=== PATIENT | female | born 1995 ===

== ENCOUNTER 2024-07-17 17:34 | Emergency (ER) | payer MEDICAID, SELFPAY ==
[2024-07-17 17:49] VITALS: BP 100/68; PULSE 80; RESP 18; TEMP 36; O2SAT 99; BMI 25.8
--- NOTE | 2024-07-17 18:27 | ED_ITS ---
HPI - General Adult General Date Seen: 07/17/24 Chief complaint: Vaginal Bleeding Stated complaint: 7 weeks and bleeding Time Seen by Provider: 07/17/24 17:58 History of Present Illness HPI narrative: 29-year-old generally healthy female presenting to the ER today with her family (her and her 3-year-old daughter) for evaluation of pelvic cramping and vaginal bleeding. She is about 7 weeks with her 2nd . LMP was on 05/29/2024. She has been doing well with her so far. She recalls that with her 1st she did have an episode of bleeding during the 1st trimester but ultimately her daughter was healthy and born at term. This afternoon at about 3:00 p.m. she started having some suprapubic and bilateral lower quadrant cramping. Subsequently she went to the bathroom and had some vaginal bleeding with a small amount of blood and clots in the toilet and a little bit of blood and clots on the toilet paper. She estimates less than a tbsp blood loss. Since then she has had recurrence of cramping but no further bleeding. With concern for the bleeding and cramping and possible miscarriage she came here to the ER today. She does not know her blood type but does not recall receiving RhoGAM during her 1st . Her previous delivery occurred at [facility], in [place]. She plans to have her obstetric care here in [place] with her 2nd . She has her 1st visit and ultrasound scheduled for 1 week from now on 07/24/2024. She is not on any other medications. Related Data Home Medications ?Medication ?Instructions ?Recorded ?Confirmed No Known Home Medications 07/17/24 07/17/24 Allergies Allergy/AdvReac Type Severity Reaction Status Date / Time No Known Drug Allergies Allergy Verified 07/17/24 17:58 Exam Narrative: Exam Narrative: Constitutional: Appears well-developed and well-nourished. Alert. Conversant. Non toxic. HENT: Head: Atraumatic. Nose: Nose normal. Mouth/Throat: Oral mucosa is clear and moist. no trismus. Eyes: Conjunctivae normal. EOM normal. Pupils equal, round, and reactive to light. No scleral icterus. Neck: Normal range of motion. Neck supple. No tracheal deviation present. Cardiovascular: Normal rate, regular rhythm. No gallop. No friction rub. No murmur heard. Symmetric radial artery pulses Pulmonary/Chest: Effort normal. No stridor. No respiratory distress. No wheezes. No rales. No rhonchi . No tenderness. Abdominal: Soft. Bowel sounds normal. No distension. No mass. I do not appreciate any uterine enlargement. Suprapubic tenderness. No rebound. No guarding. Musculoskeletal: RUE: Normal range of motion. No tenderness. No deformity LUE: Normal range of motion. No tenderness. No deformity RLE: Normal range of motion. No edema. No tenderness. No deformity LLE: Normal range of motion. No edema. No tenderness. No deformity Neurological: Alert and oriented to person, place, and time. Normal strength. CN II-VII intact. No sensory deficit. GCS eye subscore is 4. GCS verbal subscore is 5. GCS motor subscore is 6. Normal coordination Skin: Skin is warm and dry. No rash noted. No pallor. Normal capillary refill. Psychiatric: Normal mood. Normal affect. Const: Vital Signs, click to edit/add: Vital Signs - 24 hr 07/17/24 17:49 07/17/24 19:08 Temperature 96.8 F L 97.0 F L Pulse Rate [Left P ulse Oximeter] 80 66 Respiratory Rate 18 18 Blood Pressure [Ri ght Upper Arm] 100/68 107/69 Pulse Oximetry 99 99 Oxygen Delivery Me thod Room Air Room Air Course Course ED Course: Recheck-doing well. No recurrent bleeding. Patient is very reassured by her ultrasound findings. She is smiling and happy. Vital Signs Vital signs: Initial Vital Signs Temperature 96.8 F L 07/17/24 17:49 Temperature Source Temporal Artery Scan 07/17/24 17:49 Pulse Rate 80 07/17/24 17:49 Respiratory Rate 18 07/17/24 17:49 Blood Pressure 100/68 07/17/24 17:49 Blood Pressure Mean 78 07/17/24 17:49 Blood Pressure Position Sitting 07/17/24 17:49 Pulse Oximetry 99 07/17/24 17:49 Oxygen Delivery Method Room Air 07/17/24 17:49 Vital Signs Temperature 96.8 F L 07/17/24 17:49 Pulse Rate 80 07/17/24 17:49 Respiratory Rate 18 07/17/24 17:49 Blood Pressure 100/68 07/17/24 17:49 Pulse Oximetry 99 07/17/24 17:49 Oxygen Delivery Method Room Air 07/17/24 17:49 Temperature 97.0 F L 07/17/24 19:08 Pulse Rate 66 07/17/24 19:08 Respiratory Rate 18 07/17/24 19:08 Blood Pressure 107/69 07/17/24 19:08 Pulse Oximetry 99 07/17/24 19:08 Oxygen Delivery Method Room Air 07/17/24 19:08 Medical Decision Making MDM Narrative Medical decision making narrative: This female patient presents for evaluation of pelvic cramping and episode of vaginal bleeding. She is currently approximately 7 weeks by dates (and has proven to have a IUP 6 weeks, 3 days by ultrasound). I considered a broad differential including ectopic , ovarian cyst, UTI, pyelonephritis, subchorionic hemorrhage, uterine bleeding, active miscarriage, constipation, etc. Non gynecologic causes considered included , appendicitis, cholecystitis, volvulus, intraabdominal abscess, among others. In this patient, there are no signs of serious etiologies of abdominal pain. The workup here suggests threatened miscarriage. There is no subchorionic hemorrhage. Blood type is O-positive. At this point, patient is hemodynamically stable, hemoglobin is reassuring, and bleeding is not predicted to become life threatening. Plan is home, close follow-up with OB, threatened miscarriage precautions, and return to ED for worsening pain, heavy vaginal bleeding (more than 1 pad soaked every hour). Questions were answered. Lab Data Labs: Lab Results 07/17/24 Range/Units 18:50 WBC 8.77 (4.50-11.00) K/uL RBC 4.11 (4.00-5.20) m/uL Hgb 12.4 (12.0-16.0) gm/dL Hct 37.1 (33.0-51.0) % MCV 90 (80-100) fL MCH 30 (26-34) pg MCHC 33 (32-36) gm/dL RDW Coeff of Delores 12.5 (11.5-15.5) % Plt Count 261 (140-440) K/uL Neut % (Auto) 72.5 H (42.0-72.0) % Lymph % (Auto) 20.5 (20-44) % Gilmer % (Auto) 5.8 (0.0-11.0) % Eos % (Auto) 0.9 (0.0-7.0) % Baso % (Auto) 0.2 (0.0-3.0) % Neut # (Auto) 6.40 (1.7-7.0) K/uL Lymph # (Auto) 1.80 (0.90-2.90) K/uL Gilmer # (Auto) 0.50 (0.00-0.90) K/UL Eos # (Auto) 0.08 (0.00-0.50) K/uL Baso # (Auto) 0.02 (0.00-0.30) K/uL Abs Immat Gran (auto) 0.01 (0.00-0.30) K/uL Imm/Tot Granulo (auto) 0.1 % HCG, Quant 08355.00 mIU/mL Blood Type O Positive Antibody Screen NEGATIVE Discharge Plan Discharge Clinical Impression: Threatened Patient Disposition: Home, Self-Care Condition: Stable Instructions: Threatened Miscarriage (ED) Additional Instructions: As we discussed, please follow-up with your OB doctor within 1 week, even if you continue to feel good. If you have more bleeding or cramping, worsening abdominal pain, lightheadedness or fainting, please return to the ER or call your electrical sign wirer right [email or web address]. y Prescriptions: No Action No Known Home Medications Follow Up/Referrals: Provider,Not a Local [Primary Care Provider] - Stand Alone Forms: [employer] Info Instructions
--- NOTE | 2024-07-17 18:38 | CRLHL7_ITS ---
For Patients: As a result of the Cures Act, medical imaging exams and procedure reports are released immediately into your electronic medical record. You may view this report before your referring provider. If you have questions, please contact your health care provider. INDICATION: Cramping and vaginal bleeding. LMP 05/29/2024. COMPARISON: None. TECHNIQUE: Real-time hancock-scale imaging of the pelvis was performed. FINDINGS: Sonographic imaging demonstrates a single living intrauterine gestation. The embryo has a regular cardiac rate measuring 114 beats per minute. The embryo`s crown-rump length measures 0.6 cm which corresponds to a gestational age of 6 weeks 3 days with sonographic due date 03/09/2025. There is a normal-appearing yolk sac. The placenta has not yet developed. No evidence of a perigestational hemorrhage. The right ovary measures 3.5 x 3.0 x 3.4 cm and the left ovary measures 2.4 x 1.2 x 1.5 cm. Corpus luteal cyst in the right ovary. No free fluid in the pelvic cul-de-sac. IMPRESSION: 1. Single living intrauterine gestation corresponding to an ultrasound gestational age of 6 weeks 3 days with sonographic due date 03/09/2025. 2. The clinical gestational age by LMP is 7 weeks 0 days. Dictated by Lori Reed MD @ 07/17/2024 8:36:29 PM (Electronically Signed)
[2024-07-17 18:57] LABS: Basophils Absolute Auto 0.02 K/uL (0.00-0.30); Basophils Percent Auto 0.2 % (0.0-3.0); Eosinophils Absolute Auto 0.08 K/uL (0.00-0.50); Eosinophils Percent Auto 0.9 % (0.0-7.0); Hematocrit 37.1 % (33.0-51.0); Hemoglobin* 12.4 gm/dL (12.0-16.0); Immature Granulocytes Abs Auto 0.01 K/uL (0.00-0.30); Immature Granulocytes Pct Auto 0.1 %; Lymphocytes Percent Auto 20.5 % (20-44); Mean Corpuscular HGB Conc 33 gm/dL (32-36); Mean Corpuscular Hemoglobin 30 pg (26-34); Mean Corpuscular Volume 90 fL (80-100); Monocytes Percent Auto 5.8 % (0.0-11.0); Neutrophils Percent Auto 72.5 % (42.0-72.0); Platelet Count* 261 K/uL (140-440); RDW Coefficient of Variation % 12.5 % (11.5-15.5); Red Blood Count 4.11 m/uL (4.00-5.20); White Blood Count* 8.77 K/uL (4.50-11.00)
[2024-07-17 19:00] LABS: Slide Review Reflex No
[2024-07-17 19:08] VITALS: BP 107/69; PULSE 66; RESP 18; TEMP 36.1; O2SAT 99
== END 2024-07-17 20:55 | disposition home or self-care (01) ==
PROVIDERS: Emergency Provider Emergency Medicine
DX: O20.0 Threatened abortion (principal)
CPT/HCPCS: 36415; 76817; 84702; 85025; 86850; 86900; 86901; 99283; 99284

== ENCOUNTER 2024-07-24 10:25 | Outpatient (CLI) | payer MEDICAID, SELFPAY ==
--- NOTE | 2024-07-24 10:15 | CRLHL7_ITS ---
For Patients: As a result of the Century Cures Act, medical imaging exams and procedure reports are released immediately into your electronic medical record. You may view this report before your referring provider. If you have questions, please contact your health care provider. INDICATION: Dating, viability, follow-up. TECHNIQUE: Ultrasound OB pelvis transabdominal and transvaginal. Real-time hancock-scale imaging of the pelvis was performed. COMPARISON: Ultrasound July 2024 FINDINGS: Intrauterine gestation: Single. heart activity (bpm): 157, regular. [place]-rump length: 1.4 cm. Estimated ultrasound age: 7 weeks 5 day. JORJE by ultrasound: 03/09/2025. Yolk sac: Normal. Perigestational hemorrhage: Small subchorionic hemorrhage measures 0.9 x 0.5 x 0.6 cm. Ovaries and adnexa: Unremarkable. Suspicious pelvic fluid collections: None. IMPRESSION: 1. Single viable intrauterine with gestational age of 7 weeks 5 day, JORJE of 03/09/2025. 2. Small subchorionic hemorrhage measuring 9 millimeter. Dictated by Prashanth Post MD @ 07/24/2024 1:47:41 PM (Electronically Signed)
== END 2024-07-24 10:26 | disposition home or self-care (01) ==
LOC: US 10:25
PROVIDERS: Visit Provider Physician Assistant
DX: Z34.91 Encounter for supervision of normal pregnancy, unspecified, first trimester (principal); O20.9 Hemorrhage in early pregnancy, unspecified; Z3A.01 Less than 8 weeks gestation of pregnancy
CPT/HCPCS: 76817; 83021; 86592; 86703; 86704; 86706; 86762; 86787; 86803; 86850; 86900; 86901; 87086; 87340; 87491; 87591

== ENCOUNTER 2024-10-15 11:16 | Outpatient (CLI) | payer MEDICAID, SELFPAY ==
--- NOTE | 2024-10-15 11:15 | CRLHL7_ITS ---
For Patients: As a result of the 21st Century Cures Act, medical imaging exams and procedure reports are released immediately into your electronic medical record. You may view this report before your referring provider. If you have questions, please contact your health care provider. LMP: 05/29/2024. JORJE by LMP: 03/05/2025. GA: 19w, 6d. Single. INDICATION: Supervision of normal . CERVIX: Visualized. Measurement: 4.2. Transabdominal imaging. POSITIONING: Multiple positions. AMNIOTIC FLUID: 4.1 cm. PLACENTA: Technique: Transabdominal. PLACENTA POSITION: Posterior. PLACENTA TO INTERNAL OS: 6.4 cm. UMBILICAL CORD: 3-vessel cord. HEART RATE: 144 bpm. PLACENTAL INSERTION: Central. Biometry: BPD: 4.6 cm. 19w, 6d, 50 percent. HC: 16.7 cm. 19w, 3d, 22 percent. AC: 15.2 cm. 20w, 3d, 64 percent. FL: 3.2 cm. 19w, 6d, 42 percent. FL/AC ratio: 20.84 percent. HC/AC ratio: 1.10. EFW: 330.83 g. Weight: 0 lbs, 12 oz. age by this US: 20w, 0d. JORJE by this US: 03/04/2025. Percentile by JORJE: 59 percent. SURVEY: Observed Structures Cerebellum: Yes. 2.0 cm. 20w 4d. Cisterna Magna: Yes. 4.0 mm. Nuchal Fold: Yes. 4.8 mm. Lateral Ventricle: Yes. 6.7 mm. CSP: Yes. Midline Falx: Yes. Choroid Plexus: Yes. Spine: Yes. Stomach: Yes. Abd Cord Insertion: Yes. Urinary Bladder: Yes. Kidneys: Yes. Diaphragm: Yes. Nose/lips: Yes. Orbital view: Yes. Profile: Yes. Upper Extremities: Yes. Lower Extremities: Yes. Hands: Yes. Feet: Yes. Four-Chamber Heart: Yes. LVOT: Yes. RVOT: Yes. 3VV: Yes. 3VTV: Yes. IMPRESSION: 1. Concordance of clinical and sonographic dating. 2. Incomplete visualization of the diaphragm, 4-chamber heart, LVOT, RVOT, 3-vessel view and 3-vessel trachea view. Remainder of the anatomic survey normal. Short-term follow-up recommended. Ovidio Patrick M.D. Diagnostic Radiologist [email or web address] JULIO/rekha / bM/Dictated by: Ovidio Patrick MD @ 10/15/2024 5:14:00 PM (Electronically Signed)
== END 2024-10-15 11:17 | disposition home or self-care (01) ==
LOC: US 11:16
PROVIDERS: Visit Provider Advanced Practice Midwife
DX: Z34.92 Encounter for supervision of normal pregnancy, unspecified, second trimester (principal); Z3A.19 19 weeks gestation of pregnancy
CPT/HCPCS: 76805

== ENCOUNTER 2024-11-02 10:57 | Outpatient (CLI) | payer MEDICAID, SELFPAY ==
--- NOTE | 2024-11-02 11:15 | CRLHL7_ITS ---
For Patients: As a result of the Century Cures Act, medical imaging exams and procedure reports are released immediately into your electronic medical record. You may view this report before your referring provider. If you have questions, please contact your health care provider. OBSTETRICAL ULTRASOUND ??? FOLLOW-UP, 11/02/2024 INDICATION: Follow-up missing anatomy; diaphragm and heart views. CLINICAL HISTORY: JORJE by LMP: 03/05/2025 Gestational Age: 22 weeks 3 days COMPARISON: 10/15/2024 TECHNIQUE: Real-time hancock-scale transabdominal imaging of the fetus was performed. FINDINGS: Fetus: Single Cervix: Visualized, 3.2 cm positioning: Vertex Amniotic Fluid: 4.0 cm SDP Placenta technique: Transabdominal Placenta position: Posterior heart rate: 142 bpm IMPRESSION: 1. Normal kidneys, stomach, diaphragm, RVOT, four-chamber heart, LVOT, three-vessel trachea view and three-vessel view. 2. Normal amniotic fluid with single deepest pocket 4.0 cm. OVIDIO SCOTT M.D. Diagnostic Radiologist [email or web address] Transcribed: 5:[address]/Dictated by: Ovidio Scott MD @ 11/02/2024 4:48:00 PM (Electronically Signed)
== END 2024-11-02 10:58 | disposition home or self-care (01) ==
LOC: US 10:58
PROVIDERS: Visit Provider Advanced Practice Midwife
DX: Z36.2 Encounter for other antenatal screening follow-up (principal); Z3A.22 22 weeks gestation of pregnancy
CPT/HCPCS: 76816

== ENCOUNTER 2024-11-27 16:11 | Outpatient (CLI) | payer MEDICAID, SELFPAY ==
[2024-11-27 16:27] VITALS: PULSE 76; O2SAT 98
[2024-11-27 16:30] VITALS: RESP 16; TEMP 36.6
[2024-11-27 16:32] VITALS: PULSE 88; O2SAT 100
[2024-11-27 16:37] VITALS: PULSE 80; O2SAT 99
[2024-11-27 17:06] LABS: Amnisure Rom* Negative
[2024-11-27 17:25] LABS: Clue Cells No Clue Cells Seen (None Seen); Trichomonas No Trichomonas Seen (None Seen); Yeast No Yeast Seen (None Seen)
[2024-11-27 17:37] VITALS: BP 113/67; BP 115/70; PULSE 74; PULSE 79
[2024-11-27 18:34] LABS: Chlamydia DNA Amplified* NOT DETECTED (No Detected); GC DNA Amplified* NOT DETECTED (No Detected)
--- NOTE | 2024-11-27 19:37 | PC.OBNST ---
NST Note NST Note Start: 11/27/24 16:47 Freq: ONCE Status: Active Protocol: Document 11/27/24 19:34 JRS (Rec: 11/27/24 19:35 JRS No Response) NST Note 2 Para (# of births) 1 EDC 03/05/25 Gestational Age In 26 Weeks & 0 Days Weeks & Days Patient Presented Leaking fluid with Complaint(s) of Appropriate for Yes Gestational Age KAMERON Pedroza RN Date 11/27/24 Appropriate for Yes Gestational Age KAMERON Panchal Date 11/27/24 OB NST charge Yes Complete NST Note Yes via Write Note The provider's electronic signature indicates the NST is reactive/appropriate for gestational age. *Note to provider: If an addendum is required, open the patient's chart and click on the note under the Nurse/Allied Health tab.
== END 2024-11-27 17:45 | disposition home or self-care (01) ==
LOC: OB OUT 16:12 → OB 16:13
PROVIDERS: Visit Provider Midwife
DX: O47.02 False labor before 37 completed weeks of gestation, second trimester (principal); Z3A.26 26 weeks gestation of pregnancy
CPT/HCPCS: 59025; 84112; 87210; 87491; 87591; G0463

== ENCOUNTER 2024-12-14 11:05 | Outpatient (CLI) | payer MEDICAID, SELFPAY | END 2024-12-14 11:06 | disposition home or self-care (01) | LOC: NFLDREF 12-17 06:51 | PROVIDERS: Visit Provider Advanced Practice Midwife | DX: Z34.93 Encounter for supervision of normal pregnancy, unspecified, third trimester (principal); Z3A.28 28 weeks gestation of pregnancy | CPT/HCPCS: 86592 ==

== ENCOUNTER 2025-01-29 23:22 | Outpatient (CLI) | payer MEDICAID, SELFPAY ==
[2025-01-30 00:40] VITALS: BP 111/62; PULSE 76; RESP 17; TEMP 36.3; O2SAT 97
[2025-01-30 01:07] LABS: Appearance Urine Clear (Clear)
--- NOTE | 2025-02-09 19:47 | PC.OBNST ---
NST Note NST Note Start: 01/30/25 00:50 Freq: ONCE Status: Discharge Protocol: Document 01/30/25 01:08 VIRY (Rec: 01/30/25 01:09 VIRY Desktop) NST Note 2 Para (# of births) 1 EDC 03/05/25 Gestational Age In 35 Weeks & 1 Days Weeks & Days Patient Presented Contractions/cramping with Complaint(s) of Reactive Yes Appropriate for Yes Gestational Age RN Royal RN Date 01/30/25 Reactive Yes Appropriate for Yes Gestational Age RN Victorina RN Date 01/30/25 OB NST charge Yes Complete NST Note Yes via Write Note The provider's electronic signature indicates the NST is reactive/appropriate for gestational age. *Note to provider: If an addendum is required, open the patient's chart and click on the note under the Nurse/Allied Health tab.
== END 2025-01-30 01:20 | disposition home or self-care (01) ==
LOC: OB OUT 01-30 00:18 → OB 01-30 00:20
PROVIDERS: Visit Provider Advanced Practice Midwife
DX: O47.03 False labor before 37 completed weeks of gestation, third trimester (principal); Z3A.35 35 weeks gestation of pregnancy
CPT/HCPCS: 59025; 81003; G0463

== ENCOUNTER 2025-02-05 14:18 | Outpatient (CLI) | payer MEDICAID, SELFPAY | END 2025-02-05 14:19 | disposition home or self-care (01) | LOC: NFLDREF 02-07 17:37 | PROVIDERS: Visit Provider Advanced Practice Midwife | DX: Z34.93 Encounter for supervision of normal pregnancy, unspecified, third trimester (principal); Z3A.36 36 weeks gestation of pregnancy | CPT/HCPCS: 87081; 87653 ==

== ENCOUNTER 2025-03-05 13:20 | Outpatient (CLI) | payer MEDICAID, SELFPAY | END 2025-03-05 13:21 | disposition home or self-care (01) | LOC: NFLDREF 03-07 06:36 | PROVIDERS: Visit Provider Midwife | DX: Z34.83 Encounter for supervision of other normal pregnancy, third trimester (principal) | CPT/HCPCS: 87081; 87653 ==

== ENCOUNTER 2025-03-09 06:23 | Inpatient (IN) | payer MEDICAID, SELFPAY ==
[2025-03-09] VITALS (42 sets, daily range): BP systolic 95–141; BP diastolic 53–89; PULSE 60–94; RESP 16–18; TEMP 36.6–37.1; O2SAT 98–100; BMI 30.2
[2025-03-09 06:33] LABS: Amnisure Rom* POSITIVE
[2025-03-09] MEDS: ACETAMINOPHEN 500 MG TABLET 1000 MG PO ×2 (06:58→20:47)
[2025-03-09] MEDS: LACTATED RINGERS 1000 ML 1,000 ML IV (07:40)
--- NOTE | 2025-03-09 07:47 | P.LDBA_ITS ---
Subjective History of Present Illness Date Seen: 03/09/25 Narrative: Mar is a at 40 4/7 weeks gestation being admitted to Labor and Delivery for spontaneous onset of labor with SROM prior to arrival. She is coping well with nitrous at this time but desires an epidural. Her full history and physical was dictated by LAMONT Loja on 02/14/2025. Please see this for details. [] Specific Issues/Plans Partner: Timbo H&P: Completed 02/14/25 by Yoni MIGUEL # history of depression Did not use meds Imaging: Anatomy US 10/15/2024: 1.Concordance of clinical and sonographic dating. 2.Incomplete visualization of the diaphragm, 4-chamber heart, LVOT, RVOT, 3- vessel view and 3-vessel trachea view. Remainder of the anatomic survey normal. Short-term follow-up recommended. 11/02/24: Repeat US for inadequate views: missing anatomy seen and appears WNL per tech report. Vaccinations: COVID: Recommended, declined Flu: Recommended, declined Tdap: 12/28/24 32 week mental health:01/14/25 Last pap: Uncertain, records requested. OB - Problem Based A/P Additional Plan (1) Pain during labor: Status: Acute (2) 40 weeks gestation of : Status: Acute (3) Depression: Problem details: stable Status: Acute Plan ASSESSMENT:? 30 yo at 40.4 weeks gestation? complicated by:?depression Labor type: spontaneous, active labor? Category 1 FHR pattern.?? Labor complicated by: none? GBS negative? ? PLAN:? 1. Routine intrapartum cares as ordered. Continue with expectant management? 2. Monitoring per policy, continuous as patient desires epidural.? 3. Requested epidural, Candidate for analgesia of choice. IV placed and labs drawn per RN.?? 4. Patient encouraged to reposition to promote physiologic labor and .? 5. Care assumed by LAMONT Vargas 6. Anticipate ? Delivery/Labor/Induction Plan Plan: expectant management OB Result Labs Blood Type: O (+) positive GBS Status: negative OB Exam Physical Exam Vital signs: Pulse BP 75 125/73 03/09/25 06:53 03/09/25 06:53 Narrative: Vitals Reviewed Constitutional:? Alert and oriented x3 HEENT:? Normocephalic, atraumatic Neck:? Supple Lungs:? Clear to auscultation bilaterally Heart:? Regular rate and rhythm, no murmur, rub or gallop Abdomen:? Soft, nontender, and gravid. Vertex by Jose's, confirmed with cervical exam. Extremities:? No edema or erythema Cervix: 6 cm/90%/0 station/vertex NST: 120 bpm/moderate variability/15x15 accelerations/no decelerations/contractions every 1-3 minutes Detailed Labor and Delivery Exam Patient Gravid: yes
[2025-03-09 07:48] LABS: Hematocrit 36.1 % (33.0-51.0); Hemoglobin* 12.3 gm/dL (12.0-16.0); Immature Granulocytes Pct Auto 1.4 %; Mean Corpuscular HGB Conc 34 gm/dL (32-36); Mean Corpuscular Hemoglobin 31 pg (26-34); Mean Corpuscular Volume 91 fL (80-100); RDW Coefficient of Variation % 13.0 % (11.5-15.5); Red Blood Count 3.99 m/uL (4.00-5.20); White Blood Count* 13.24 K/uL (4.50-11.00)
[2025-03-09 07:50] LABS: Immature Granulocytes Abs Auto 0.20 K/uL (0.00-0.30); Lymphocytes Absolute Auto 1.60 K/uL (0.90-2.90); Slide Review Reflex No
[2025-03-09] MEDS: LIDOCAINE 2% (PF) 5 ML VIAL EPIDURAL (08:31)
[2025-03-09] MEDS: ROPIVACAINE 0.2% 100 ml 100 ML 12 MG EPIDURAL (08:31)
--- NOTE | 2025-03-09 08:37 | PM.ANBPRC ---
[facility] Medical History History of vaginal delivery Surgical History No pertinent past surgical history ?Z78.9 - Other specified health status (ICD-10) Family History Maternal Grandfather Diabetes Social History Narrative: Occupation: [id number] mom. Marital status: . Religion/cultural needs: no. Chemical or radiation exposure: no. Pre- tobacco use: no. Pre- alcohol use: no. Current tobacco use: no. Current alcohol use: no. Recreational drug use: no. Dietary restrictions: no. Blood transfusion acceptable in an emergency: yes. PSYCHOSOCIAL HISTORY: History of depression or currently depressed: Yes, history. Current or past physical, emotional, or sexual mistreatment: Denies. Problems that will make it hard to make it to appointments: Denies. What is your current living situation?: I presently have a place to live Problems where you live: no known problems In the past 12 months, utilities in danger of being shut off: no In past 12 months, lack of transportation kept you from medical appts, meetings, work, or getting things needed for daily living: yes In the past 12 mos, have been you worried that your food would run out before you had money to buy more?: often true In the past 12 mos, the food you bought just didn't last and you didn't have money to buy more?: sometimes true Smoking Status: Never smoker How often does anyone, including family, friends and others, physically hurt you: never How often does anyone, including family, friends and others, insult or talk down to you: rarely How often does anyone, including family, friends and others, threaten you with harm: never How often does anyone, including family, friends and others, scream or curse at you: never Health Related Social Needs: food insecurity (Z59.41), transportation insecurity (Z59.82) and Other personal risk factors, not elsewhere classified (Z91.89) Meds Home Medications and Allergies Home Medications ?Medication ?Instructions ?Recorded ?Confirmed ?Type [id number] 3 fatty no.1 27 cap PO 07/24/24 03/05/25 History mg-1 mg-300 mg capsule acetaminophen 500 mg tablet 500 mg PO Q6H PRN 01/14/25 03/05/25 History (Tylenol Extra Strength) Allergies Allergy/AdvReac Type Severity Reaction Status Date / Time No Known Drug Allergies Allergy Verified 03/05/25 13:02 Results Labs Labs: Laboratory Results - last 24 hr 03/09/25 03/09/25 06:20 07:35 WBC 13.24 H RBC 3.99 L Hgb 12.3 Hct 36.1 MCV 91 MCH 31 MCHC 34 RDW Coeff of Delores 13.0 Plt Count 192 Neut % (Auto) 80.1 H Lymph % (Auto) 12.3 L [place] % (Auto) 5.6 Eos % (Auto) 0.4 Baso % (Auto) 0.2 Neut # (Auto) 10.60 H Lymph # (Auto) 1.60 [place] # (Auto) 0.70 Eos # (Auto) 0.10 Baso # (Auto) 0.00 Abs Immat Gran (auto) 0.20 Imm/Tot Granulo (auto) 1.4 Membrane Rupture POSITIVE Vital Signs Vital Signs: Last Vital Signs Temp 98.4 F 03/09/25 07:59 Pulse 69 03/09/25 08:35 Resp 18 03/09/25 07:59 BP 126/69 03/09/25 08:35 Pulse Ox 98 03/09/25 08:34 Anesthesia Procedures Epidural Insertion Patient Location: OB Start Time: 08:00 Stop Time: 08:40 Start Date: 03/09/25 Stop Date: 03/09/25 Reason for Block: primary anesthetic Patient Position: sitting Performed By: Roger Gillette Preanesthetic Checklist: IV checked, risks and benefits discussed, surgical consent, monitors and equipment checked, pre-op evaluation, timeout performed and anesthesia consent Prep: chlorhexidine gluconate Monitoring: blood pressure monitoring, corrections cadet, continuous pulse oximetry and heart rate Approach: midline Vertebral Space: lumbar (1-5) Needle Type: Tuohy needle Injection Technique: continuous catheter (catheter) Needle gauge: 17 Needle Length (cm): 10 cm Needle Insertion Depth (cm): 5 Catheter Gauge: 19 Catheter Type: multi-orifice Catheter at skin depth (cm): 10 Test Dose Result: negative and lidocaine 1.5% with epinephrine 1 to 200,000
[2025-03-09] MEDS: LACTATED RINGERS 1000 ML 1,000 ML 125 ML IV (08:41)
[2025-03-09] MEDS: OXYTOCIN 30 unit/500 ML in NS 30 UNIT/500 ML BAG 300 UNIT IVPB (11:53)
[2025-03-09] MEDS: miSOPROStoL 800 MCG/4 TABLET PR (11:58)
--- NOTE | 2025-03-09 12:10 | W.PM.OBVAGDE ---
OB Procedure Vag Delivery Mother Details Mother Details: The patient is a 30 year-old, 2, Para 1, admitted on 03/09/25 at 40.4 Days gestation. : 2 Para: 2 Weeks Gestation: 40.4 Admission Date: 03/09/25 Additional Details Amniotic Membrane Status: SROM Amniotic Membrane Rupture Date: 03/09/25 Amniotic Membrane Rupture Time: 04:40 Amniotic Membrane Fluid Description: Clear Analgesia/Anesthesia Type: Epidural Waterbirth: No Pitcoin: Yes (AMTSL only) Intrapartal Events: None Labor Onset: 04:40 Complete: 11:11 Pushin:22 Heart: heart tones during second stage were category 2 with baseline of 125, + accels, and moderate variability. Occasional variables to the 90's with pushing and quick return to baseline. Delivery Details Delivery Date: 03/09/25 Delivery Time: 11:49 Route of delivery: Infant Gender: Female Viability: Alive; Heart Rate Present Position at Delivery: OA Delivery Details: Patient was admitted for SROM with spontaneous labor and progressed normally. SROM noted at 0440 with clear fluid. Patient was complete at 1111 and pushing at 1122. of a viable female at 1149 in lithotomy. Vertex delivered OA. No nuchal cord or shoulder. Body delivered easily and without incident. Compound right hand was noted with delivery of the shoulders. passed to mothers abdomen with a vigorous cry. Cord was clamped and cut at about 3 minutes for concerns of increased bleeding. APGARS were 8 at one minute and 9 at five minutes respectively. Mouth was bulb suctioned. Intact placenta with a 3 vessel cord delivered spontaneously at 1155. Fundus firm. Intact perineum with a 1cm right labial laceration noted near the apex. No repair was needed as it was well approximated and hemostatic. QBL 850mL with the majority of that before and with the delivery of the placenta. Bleeding was stable after delivery of the placenta but recatl Cytotec was offered and administered given her higher QBL. Mother and baby stable; mother plans to breastfeed. weight pending. 1 Minute Interval Total Score: 8 5 Minute Interval Total Score: 9 Additional Details Shoulder Dystocia: No Placenta Delivery Time: 11:55 Placental Delivery Description: Spontaneous Procedure Done: Global Blood Loss: 850 Laceration: Labial (1cm right labial laceration at the apex, not repaired ) Episiotomy Description: None Blood Loss Measurement Type: QBL Bakri Used: No Sponge/Need Count Correct: Yes Cord Vessel Description: 3 Vessels Event Summary Status: Mother and were stable after delivery. Disposition: floor
[2025-03-09] MEDS: IBUPROFEN 600 MG TABLET PO ×2 (16:27→23:50)
[2025-03-09] MEDS: BENZOCAINE/MENTHOL 1 EACH LOZENGE MUCOUS MEM (16:28)
[2025-03-09] MEDS: SODIUM CHLORIDE NASAL SPRAY 1 SPRAY NOSTRIL-B (16:33)
[2025-03-09 17:34] LABS: SARS PCR* Negative SARS-CoV-2 (Negative)
[2025-03-10] MEDS: ACETAMINOPHEN 500 MG TABLET 1000 MG PO (02:50)
[2025-03-10 04:47] VITALS: BP 114/73; PULSE 73; RESP 18; TEMP 36.7; O2SAT 99
[2025-03-10 07:53] LABS: Hemoglobin* 9.9 gm/dL (12.0-16.0)
[2025-03-10 08:47] VITALS: BP 110/73; PULSE 73; RESP 18; TEMP 36.7; O2SAT 98
[2025-03-10] MEDS: DOCUSATE SODIUM 100 MG CAPSULE PO (08:50)
--- NOTE | 2025-03-10 09:18 | PM.ANPOST ---
Post Anesthesia Note Post Anesthesia Note Patient seen: Inpatient Respiratory Status: adequate Cardiovascular Status: adequate Mental Status: baseline Pain: adequate Temp: baseline Anesthetic awareness: N/A Complications: none Follow care: none
--- NOTE | 2025-03-10 11:11 | PM.OBPNVD1 ---
OB - PN:Subj Subjective Narrative: dc tomorrow, BFing good but no milk so supplementing, wants to pump, tired and not slept much, +BM, amenia-iron OB - PN: Obj Exam Physical Exam: Vital signs: Temp Pulse Resp BP Pulse Ox O2 Del Method 98.0 F 73 18 110/73 98 Room Air 03/10/25 08:47 03/10/25 08:47 03/10/25 08:47 03/10/25 08:47 03/10/25 08:47 03/10/25 08:47 OB - PN: Obj Data Labs Labs: Laboratory Results - last 24 hr 03/09/25 03/10/25 16:15 07:35 Hgb 9.9 L SARS-CoV-2 (PCR) Negative SARS-CoV-2 OB - PN: A/P Delivery Assessment and Plan (1) Pain during labor: Status: Acute (2) 40 weeks gestation of : Status: Acute (3) Depression: Problem details: stable Status: Acute
[2025-03-10] MEDS: IBUPROFEN 600 MG TABLET PO (14:33)
[2025-03-10] MEDS: FERROUS SULFATE 325 MG TABLET PO (14:36)
[2025-03-10 16:30] VITALS: BP 110/69; PULSE 76; RESP 18; TEMP 36.4
--- NOTE | 2025-03-10 17:46 | P.DS_ITS ---
DS: Providers Provider Date Seen: 03/10/25 Date of admission: 03/09/25 06:23 Primary care physician: Not a Local Provider Admitting Clinician: Bernarda Ramires CNM Attending Physician on discharge: Bernarda Ramires CNM Date of Discharge: 03/10/25 DS: Diagnosis Discharge Diagnosis (1) care following vaginal delivery: Status: Acute (2) Lactating mother: Status: Acute (3) Depression: Status: Acute Problem details: stable Exam Narrative: Exam Narrative: GENERAL APPEARANCE:? normal affect, alert, no distress? MOOD:? appropriate? CHEST:? clear to auscultation and percussion? HEART:? regular rate and rhythm? BREASTS: soft, nontender, no erythema, nipples intact? ABDOMEN:? soft, non-tender the uterine fundus is U/2 and is appropriate for the stage of recovery.? PERINEUM:? mild edema of the perineum, there is a small labial laceration that is healing well.? EXTREMITIES:? normal and no edema? Const: Vital Signs, click to edit/add: Vital Signs - 24 hr 03/09/25 20:30 03/09/25 23:54 03/10/25 04:47 Temperature 98.0 F 98.8 F 98.1 F Pulse Rate [Blood Pressure Cuff] 78 80 73 Respiratory Rate 18 16 18 Blood Pressure [Ri ght Arm] 138/78 111/72 114/73 Pulse Oximetry 98 99 99 Oxygen Delivery Me thod Room Air Room Air Room Air 03/10/25 08:47 03/10/25 16:30 Temperature 98.0 F 97.6 F Pulse Rate [Blood Pressure Cuff] 73 76 Respiratory Rate 18 18 Blood Pressure [Ri ght Arm] 110/73 110/69 Pulse Oximetry 98 Oxygen Delivery Me thod Room Air Documenting provider has reviewed patient's vital signs: yes OB - DS: Summary Hospital Course Hospital Course: Mar is a 30 year old G 2 P 2 at 40.4 weeks gestation that was admitted to the Center on 03/09/25 for spontaneous labor. She had an uncomplicated vaginal delivery. She delivered a viable female . She is breast feeding and supplementing with formula per her choice. the patient has done well. Her pain is well controlled with current medications.? She has no new complaints.? Urinary output is adequate and she is voiding without difficulty.? Has a good appetite, is tolerating a general diet, is passing flatus, and has had a bowel movement.? Has scant amount of rubra lochia.? She is ambulating well. She is uncertain what she is planning for contraception and will plan to review options at her 2 week PP visit. Peripartum Data delivery method: Vaginal Laceration description: Labial Episiotomy description: None complications: none Gender: Female Discharge Plan: Home Status at Discharge Functional status at discharge: independent ambulation Overall status at discharge: patient is progressing back to baseline Time Spent with Patient Time attestation: Total time spent providing and/or coordinating discharge services: Discharge Plan Discharge Disposition: Home, Self-Care Date of Admission: 03/09/25 06:23 Attending Provider on Discharge: Felecia Vargas Primary Care Provider: Provider,Not a Local Condition: Stable Anticipated Discharge Date/Time: 03/10/25 19:00 Discharge Medications: New docusate sodium 100 mg Capsule 100 mg PO DAILY Qty: 120 0RF Rx Instructions: Take 1-2 tablets daily as needed for constipation. ferrous sulfate 325 mg (65 mg iron) Tablet 325 mg PO Q48H Qty: 60 0RF ibuprofen 600 mg Tablet 600 mg PO Q6H PRNQty: 60 0RF Continued QWE-[id number]-NO-omega 3 fatty no.1 27-1-300 mg capsule PO acetaminophen [Tylenol Extra Strength] 500 mg tablet 500 mg PO Q6H PRN Discharge Orders: Discharge Order (Routine); Ordered 03/10/25 Ordered By: Felecia Vargas Patient Education: OB Vaginal/Breast Feeding Additional Instructions: Discharge instructions were reviewed with the patient including signs and symptoms of infection and home going medications Nothing vaginally for 6 weeks: no tampons or intercourse Do not drive while taking narcotic pain medication(s) Off Work or School for 8 weeks Symptoms to report to doctor: * Bleeding that saturates more than one pad per hour * Passing clots larger than the size of a golf ball * Pain not relieved by prescribed medication * Fever above 100.4 degrees Fahrenheit * A foul vaginal odor * Difficulty in emotions, mood, and functions * Thoughts of hurting yourself and/or * Painful, reddened area in your breast * Any drainage, redness, or tenderness in your IV/epidural site * Severe headache that doesn't improve after taking medications * Changes in vision, including temporary loss of vision, blurred vision, and/or light sensitivity * Upper abdominal pain (usually under ribs on the right side) * Decrease in urination or painful, frequent urinating * Chest pain * Shortness of breath * Tenderness or pain with redness and/swelling in the calf(s) of your leg 2-week visit: discuss infant feeding concerns, review control options and screen for anxiety/depression. 6-week visit for an annual exam. consultation services are available to all mothers and babies for the first year after delivery.? To make an appointment, please call [phone]. Activity Level: Activity as Tolerated Discharge Diet: Regular Follow Up Appointments: Provider,Not a Local [Primary Care Provider, Family Practice] [facility] [Provider Group] Forms: Patient Belongings, MyHealth Info Instructions
== END 2025-03-10 21:24 | disposition home or self-care (01) | DRG 807 ==
LOC: OB OUT 06:23 → OB 06:23
PROVIDERS: Advanced Practice Midwife; Admitting Provider Advanced Practice Midwife; Visit Provider Advanced Practice Midwife
DX: O48.0 Post-term pregnancy (principal); Z37.0 Single live birth; O99.344 Other mental disorders complicating childbirth; F32.A Depression, unspecified; O70.0 First degree perineal laceration during delivery; Z3A.40 40 weeks gestation of pregnancy
CPT/HCPCS: 01967; 36415; 84112; 85018; 85025; 86592; 87635; G0463; A9270; J2795; J7120

== ENCOUNTER 2025-05-14 10:22 | Outpatient (CLI) | payer MEDICAID, SELFPAY ==
[2025-05-16 04:02] LABS: HPV Source Cervical
[2025-05-17 10:06] LABS: Pap Test Digital Imaging Done
== END 2025-05-14 10:23 | disposition home or self-care (01) ==
PROVIDERS: Visit Provider Physician Assistant
DX: Z12.4 Encounter for screening for malignant neoplasm of cervix (principal)
CPT/HCPCS: 87624; 87625; 88141; 88142; 88175